=== PATIENT | male | born 1955 | race Caucasian/White ===

== ENCOUNTER 2024-10-01 09:59 | Outpatient (RCR) | payer MEDICARE, MEDICAID, SELFPAY | END 2024-10-01 12:50 | disposition home or self-care (01) | LOC: HO.PT 09:59 | PROVIDERS: PCP Physician Assistant; Visit Provider Physician Assistant | DX: M54.50 Low back pain, unspecified (principal); G89.29 Other chronic pain | CPT/HCPCS: 97110; 97140; 97161 ==